=== PATIENT | male | born 1990 | race Caucasian/White ===

== ENCOUNTER 2016-04-20 13:21 | Emergency (ER) | payer OTHER ==
[~2016-04-20] VITALS: Ht 188 cm; Wt 59.0 kg
[2016-04-20 13:57] VITALS: BP 131/76
[2016-04-20] MEDS: Norco 5mg/325mg tab PO ONE (14:27)
--- NOTE | 2016-04-20 15:20 | Diagnostic Imaging Report ---
Indication: Headache Technique: Contiguous 5 mm thick transaxial imaging of the head obtained in a Siemens Sensation [address] scanner. Soft tissue and bone windows generated. Total Dose length Product (DLP): [address] Dose Index Volume (CTDIvol): 70.38 mGy Comparison: none Findings: The size and configuration of the cortical sulci, basal cisterns, and ventricles are within normal limits for age. There is no mass effect, midline shift, or edema identified. There is no evidence of acute hemorrhage or abnormal intra-axial or extra-axial fluid collections. The bones and soft tissues are unremarkable. Impression: No mass effect, edema or acute bleed. The CT scanner at [facility] is accredited by the [employer] and the scans are performed using protocols designed to limit radiation exposure to as low as reasonably achievable to attain images of sufficient resolution adequate for diagnostic evaluation.
--- NOTE | 2016-04-20 15:21 | Diagnostic Imaging Report ---
Indication: Neck pain. Technique: Continuous helical imaging of the cervical spine was obtained transaxially from the skull base to the upper thoracic spine. 2-D coronal and sagittal reformatted images were obtained. Total Dose length Product (DLP): [address] Dose Index Volume (CTDIvol): 13 mGy Comparison: None Findings: There is no evidence of an acute fracture or malalignment. Atlantoaxial alignment appears normal. Height and configuration of the vertebral bodies and intervertebral discs are within normal limits. Uncovertebral joints and facets are unremarkable. There is no soft tissue swelling. Impression: Negative cervical spine CT The CT scanner at [facility] is accredited by the [employer] and the scans are performed using protocols designed to limit radiation exposure to as low as reasonably achievable to attain images of sufficient resolution adequate for diagnostic evaluation.
[2016-04-20 15:32] VITALS: BP 128/75
[2016-04-20 15:43] VITALS: BP 128/75
--- NOTE | 2016-04-20 15:47 | Diagnostic Imaging Report ---
Indication: Back pain Comparison: None Findings: 3 views of the lumbar spine were obtained. No acute fracture or malalignment is identified. Vertebral body heights and disk spaces are well maintained. Posterior elements are unremarkable. Impression: No acute findings.
[2016-04-20] MEDS ORDERED: CYCLOBENZAPRINE10 MG ORAL (16:16)
[2016-04-20] MEDS ORDERED: IBUPROFEN600 MG ORAL (16:16)
--- NOTE | 2016-04-20 16:33 | Diagnostic Imaging Report ---
Indication: pain Findings: Single AP view of the pelvis was performed. No acute fracture is identified. Bone mineralization is within normal limits. Bilateral hips and sacroiliac joints appear symmetric.There is no malalignment. Soft tissues are unremarkable.
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
== END 2016-04-20 16:00 | disposition home or self-care (01) ==
LOC: EDBD 13:21 → EMR 14:50
DX: M54.5 Low back pain (principal); S99.921A Unspecified injury of right foot, initial encounter; V40.9XXA Unspecified car occupant injured in collision with pedestrian or animal in traffic accident, initial encounter; Y93.02 Activity, running; Y92.9 Unspecified place or not applicable; M54.2 Cervicalgia; R51 Headache; M25.552 Pain in left hip; M25.551 Pain in right hip
CPT/HCPCS: 70450; 72020; 72125; 72170; 99284